=== PATIENT | male | born 1955 | race Caucasian/White ===

== ENCOUNTER 2016-09-19 01:08 | Emergency (ER) | payer OTHER ==
--- NOTE | 2016-09-19 02:38 | ED ORDER SUMMARY ---
..... Patient: HANNAH BOJORQUEZ OrderSheet [facility] VisitID: [id number] [place] [address] 60y, M Registration Date/Time: 09/19/2016 ORDER SHEET Weight: 90.7 kg (stated) Allergies: No Known Drug Allergy GENERAL ORDERS: UA-Culture if indicated Urgent (01:39 09/19/2016 Kameron ROBLES) (Ack 1:40 Annemarie) (1:44 Lauryn R.N.) CT Abd/Pel wo Cont Urgent (:40 09/19/2016 Kameron ROBLES) (Ack 1:42 Annemarie) (1:54 RFay) MEDICATION ORDERS: IV FLUIDS: Toradol IV 30 mg (NOW) (:40 09/19/2016 Kameron ROBLES) (1:56 Lauryn R.N.) IV NS : initial bolus 1000 mL (1000 mL/hr), then none - (NOW) (:40 09/19/2016 Kameron ROBLES) (1:56 Lauryn R.N.) Morphine IV 10 mg (HIGH ALERT MEDICATION, NOW) (02:03 09/19/2016 Kameron ROBLES) (3:04 Lauryn R.N.) Zofran IV 8 mg (NOW) (02:03 09/19/2016 Kameron ROBLES) (3:04 Lauryn R.N.) ORDER SHEET NOTES: [Electronically signed by Ryland Latham R.N. (03:18 09/19/2016)] [Electronically signed by Tosha Bonilla MD (21:32 09/22/2016)] [Electronically locked/signed by Ryland Latham R.N. (03:18 09/19/2016)]
--- NOTE | 2016-09-19 02:38 | ED NURSING NOTES ---
Clinical Report - Nurses [facility] [address] [place] [address] 09/19/2016 1:09 Patient: HANNAH BOJORQUEZ TRIAGE Triage time 0119. Acuity: LEVEL 3. Chief Complaint: TESTICULAR PAIN and (pt states," i have a kidney stone."). --01:25 Ryland Latham R.N. 01:19 09/19/16. BP: 160/102. HR: 63. RR: 18. O2 saturation: 100%. Temp: 98 F. Pain level now 05/24. --: Ryland Latham R.N. Weight: 90.7 kg stated. Height/Length: 71 inches Per Patient. BMI: 27.9. --: Ryland Latham R.N. Medications Unknown. --: Ryland Latham R.N. Allergies No Known Drug Allergy. --01:22 Ryland Latham R.N. History Arrived by private vehicle. Historian: spouse and patient. Onset was abrupt. (3 1/2 hours). ( c/o intermittent low back which progressed suddenly this evening to severe left flank pain.). He has had testicular pain. 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 SOCIAL HX: Light tobacco smoker (cigar)- less than 1/2 a pack per day. Alcohol use; consumes beer weekly and liquor weekly. FALL RISK ASSESSMENT: Fall risk assessment completed. No fall risk identified. NUTRITIONAL RISK ASSESSMENT: The nutritional risk assessment revealed no deficiencies. FUNCTIONAL ASSESSMENT: Functional assessment: no impairments noted. LEARNING NEEDS ASSESSMENT: The learning needs assessment revealed no barriers. SKIN INTEGRITY ASSESSMENT: Skin integrity risk assessment completed. No skin integrity risk identified. --01:25 Ryland Latham R.N. PROBLEMS: Renal Colic. Cervical Strain. Neck Pain. Immunizations. Head Injury. Sprain. Abrasion(s). Laceration. Tetanus Status. Headache. Nephrolithiasis. Hypertension. --01:23 [place], Ryland, R.N. ADDITIONAL SURGERIES: Amputation right pinky finger . Carpal Tunnel Surgery. Cervical laminectomy. Shoulder Surgery. --: Ryland Latham R.N. Interventions ID band on patient. --: Ryland Latham R.N. PHYSICAL ASSESSMENT GENERAL / NEURO / PSYCH: Alert. Oriented X 4. Appears in pain and in distress. HEENT: Mucous membranes are pink. RESPIRATORY: Respirations not labored. CVS: Normal heart rate and rhythm. Capillary refill less than 2 seconds. SKIN: Skin is warm and dry. --:25 Ryland Latham R.N. NURSING PROGRESS NOTES Patient gowned. Head of bed elevated. Reassurance given. Patient identifiers checked. Call light placed in reach. Bed placed in lowest position. Brakes of bed on. --01:26 Ryland Latham R.N. 01:44 09/19/2016 Site #1 started via IV in the right antecubital space with an 20g angiocath, with aseptic technique and good blood return; one attempt. Blood drawn: rainbow set. Labeled in the presence of the patient and sent to the lab. Saline lock flushed with saline. --01:44 Ryland Latham R.N. 01:56 09/19/2016 Toradol IVP 30 mg given. via site #1. Allergies verified and confirmed 5 rights. IV patency established. IV site checked: no pain, redness, or swelling. IV flushed thoroughly pre- and post-medication administration. IVP given by RN. --01:56 Ryland Latham R.N. 01:56 09/19/2016 Started bag #1 1000 mL IV Fluids IV NS (Saline); bolus of 1000 mL wide open via site #1. Allergies verified and confirmed 5 rights. IV patency established. IV site checked: no pain, redness, or swelling. IV flushed thoroughly pre- and post-medication administration. --01:56 Ryland Latham R.N. 02:39 09/19/2016 Zofran (Ondansetron HCl) IVP 8 mg given. via site #1. Allergies verified and confirmed 5 rights. IV patency established. IV site checked: no pain, redness, or swelling. IV flushed thoroughly pre- and post-medication administration. IVP given by RN. --03:04 Ryland Latham R.N. 02:39 09/19/2016 Morphine IVP 10 mg given. via site #1. Allergies verified, confirmed 5 rights and sedative warning given to the patient and patient's diversional therapist. IV patency established. IV site checked: no pain, redness, or swelling. IV flushed thoroughly pre- and post-medication administration. --03:04 Ryland Latham R.N. DISPOSITION / DISCHARGE Departure time: 314. Condition at departure: improved. No learning barriers present. Discharge instructions provided and reviewed with the patient and spouse. Reviewed warnings. Reviewed medication(s). Treatments reviewed. Reviewed referrals. Reviewed diet. Patient and spouse verbalized understanding. Written instructions provided in Ethiopian. The patient was discharged by the physician. He was discharged home and accompanied by spouse. He left the Emergency Department ambulatory and via private vehicle. Spouse driving. --03:17 Ryland Latham R.N. 03:17 09/19/16. BP: deferred. Additional comments: in hurry to leave, d/c'd iv and wanted to leave immediately. --03:17 Ryland Latham R.N. 03:18 09/19/2016 Site #1 removed upon discharge. Bandage applied. --03:18 Ryland Latham R.N. Locked/Released at 09/19/2016 3:18 by Ryland Latham R.N.
--- NOTE | 2016-09-19 02:38 | ED NURSING NOTES ---
Clinical Report - Nurses [facility] [address] [place] [address] 09/19/2016 1:09 Patient: HANNAH BOJORQUEZ TRIAGE Triage time 0119. Acuity: LEVEL 3. Chief Complaint: TESTICULAR PAIN and (pt states," i have a kidney stone."). --01:25 Ryland Latham R.N. 01:19 09/19/16. BP: 160/102. HR: 63. RR: 18. O2 saturation: 100%. Temp: 98 F. Pain level now 05/24. --: Ryland Latham R.N. Weight: 90.7 kg stated. Height/Length: 71 inches Per Patient. BMI: 27.9. --: Ryland Latham R.N. Medications Unknown. --: Ryland Latham R.N. Allergies No Known Drug Allergy. --01:22 Ryland Latham R.N. History Arrived by private vehicle. Historian: spouse and patient. Onset was abrupt. (3 1/2 hours). ( c/o intermittent low back which progressed suddenly this evening to severe left flank pain.). He has had testicular pain. 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 SOCIAL HX: Light tobacco smoker (cigar)- less than 1/2 a pack per day. Alcohol use; consumes beer weekly and liquor weekly. FALL RISK ASSESSMENT: Fall risk assessment completed. No fall risk identified. NUTRITIONAL RISK ASSESSMENT: The nutritional risk assessment revealed no deficiencies. FUNCTIONAL ASSESSMENT: Functional assessment: no impairments noted. LEARNING NEEDS ASSESSMENT: The learning needs assessment revealed no barriers. SKIN INTEGRITY ASSESSMENT: Skin integrity risk assessment completed. No skin integrity risk identified. --01:25 Ryland Latham R.N. PROBLEMS: Renal Colic. Cervical Strain. Neck Pain. Immunizations. Head Injury. Sprain. Abrasion(s). Laceration. Tetanus Status. Headache. Nephrolithiasis. Hypertension. --01:23 [place], Ryland, R.N. ADDITIONAL SURGERIES: Amputation right pinky finger . Carpal Tunnel Surgery. Cervical laminectomy. Shoulder Surgery. --: Ryland Latham R.N. Interventions ID band on patient. --: Ryland Lahtam R.N. PHYSICAL ASSESSMENT GENERAL / NEURO / PSYCH: Alert. Oriented X 4. Appears in pain and in distress. HEENT: Mucous membranes are pink. RESPIRATORY: Respirations not labored. CVS: Normal heart rate and rhythm. Capillary refill less than 2 seconds. SKIN: Skin is warm and dry. --:25 Ryland Latham R.N. NURSING PROGRESS NOTES Patient gowned. Head of bed elevated. Reassurance given. Patient identifiers checked. Call light placed in reach. Bed placed in lowest position. Brakes of bed on. --01:26 Ryland Latham R.N. 01:44 09/19/2016 Site #1 started via IV in the right antecubital space with an 20g angiocath, with aseptic technique and good blood return; one attempt. Blood drawn: rainbow set. Labeled in the presence of the patient and sent to the lab. Saline lock flushed with saline. --01:44 Ryland Latham R.N. 01:56 09/19/2016 Toradol IVP 30 mg given. via site #1. Allergies verified and confirmed 5 rights. IV patency established. IV site checked: no pain, redness, or swelling. IV flushed thoroughly pre- and post-medication administration. IVP given by RN. --01:56 Ryland Latham R.N. 01:56 09/19/2016 Started bag #1 1000 mL IV Fluids IV NS (Saline); bolus of 1000 mL wide open via site #1. Allergies verified and confirmed 5 rights. IV patency established. IV site checked: no pain, redness, or swelling. IV flushed thoroughly pre- and post-medication administration. --01:56 Ryland Latham R.N. 02:39 09/19/2016 Zofran (Ondansetron HCl) IVP 8 mg given. via site #1. Allergies verified and confirmed 5 rights. IV patency established. IV site checked: no pain, redness, or swelling. IV flushed thoroughly pre- and post-medication administration. IVP given by RN. --03:04 Ryland Latham R.N. 02:39 09/19/2016 Morphine IVP 10 mg given. via site #1. Allergies verified, confirmed 5 rights and sedative warning given to the patient and patient's cane flume watchman. IV patency established. IV site checked: no pain, redness, or swelling. IV flushed thoroughly pre- and post-medication administration. --03:04 Ryland Latham R.N. DISPOSITION / DISCHARGE Departure time: 314. Condition at departure: improved. No learning barriers present. Discharge instructions provided and reviewed with the patient and spouse. Reviewed warnings. Reviewed medication(s). Treatments reviewed. Reviewed referrals. Reviewed diet. Patient and spouse verbalized understanding. Written instructions provided in Palestinian. The patient was discharged by the physician. He was discharged home and accompanied by spouse. He left the Emergency Department ambulatory and via private vehicle. Spouse driving. --03:17 Ryland Latham R.N. 03:17 09/19/16. BP: deferred. Additional comments: in hurry to leave, d/c'd iv and wanted to leave immediately. --03:17 Ryland Latham R.N. 03:18 09/19/2016 Site #1 removed upon discharge. Bandage applied. --03:18 Ryland Latham R.N. Locked/Released at 09/19/2016 3:18 by Ryland Latham R.N.
--- NOTE | 2016-09-19 02:38 | ED ORDER SUMMARY ---
..... Patient: HANNAH BOJORQUEZ OrderSheet [facility] VisitID: [id number] [place] [address] 60y, M Registration Date/Time: 09/19/2016 ORDER SHEET Weight: 90.7 kg (stated) Allergies: No Known Drug Allergy GENERAL ORDERS: UA-Culture if indicated Urgent (01:39 09/19/2016 Kameron ROBLES) (Ack 1:40 Annemarie) (1:44 Lauryn R.N.) CT Abd/Pel wo Cont Urgent (:40 09/19/2016 Kameron ROBLES) (Ack 1:42 Annemarie) (1:54 RFay) MEDICATION ORDERS: IV FLUIDS: Toradol IV 30 mg (NOW) (:40 09/19/2016 Kameron ROBLES) (1:56 Lauryn R.N.) IV NS : initial bolus 1000 mL (1000 mL/hr), then none - (NOW) (:40 09/19/2016 Kameron ROBLES) (1:56 Lauryn R.N.) Morphine IV 10 mg (HIGH ALERT MEDICATION, NOW) (02:03 09/19/2016 Kameron ROBLES) (3:04 Lauryn R.N.) Zofran IV 8 mg (NOW) (02:03 09/19/2016 Kameron ROBLES) (3:04 Lauryn R.N.) ORDER SHEET NOTES: [Electronically signed by Ryland Latham R.N. (03:18 09/19/2016)] [Electronically signed by Tosha Bonilla MD (21:32 09/22/2016)] [Electronically locked/signed by Ryland Latham R.N. (03:18 09/19/2016)]
--- NOTE | 2016-09-19 02:38 | ED CLINICAL REPORT ---
Clinical Report - Physicians/Mid Levels [facility] [address] [place] [address] 09/19/2016 1:09 Patient: HANNAH BOJORQUEZ Time Seen: 01:39. Arrived- By private vehicle. Historian- patient. HISTORY OF PRESENT ILLNESS Chief Complaint: FLANK PAIN. At its maximum, severity described as severe. When seen in the E.D., severity described as moderate. Modifying factors. Not worsened by anything. Not relieved by anything. It is described as "pain" and sharp and it is described as located in the left lower quadrant and the left flank and radiating (L testicle). This started just prior to arrival and is still present. The patient has had nausea. No loss of appetite or diarrhea. Similar symptoms previously: ( Pt has a h/o kidney stones.). Recent medical care: Not recently seen/assessed. REVIEW OF SYSTEMS No constipation, black stools, hematemesis, difficulty with urination or pain with urination. No urinary frequency, bloody stools, fever, headache or sore throat. No blurred vision, chest pain, difficulty breathing, cough or joint pain. No skin rash, chills or back pain. All systems otherwise negative, except as recorded above. PAST HISTORY Problems: Renal Colic. Immunizations. Tetanus Status. Nephrolithiasis. Hypertension. Additional Surgeries: Amputation right pinky finger . Carpal Tunnel Surgery. Cervical laminectomy. Shoulder Surgery. Medications: Unknown. Allergies: No Known Drug Allergy. SOCIAL HISTORY Smoker- current status unknown. Alcohol use. No drug use. ADDITIONAL NOTES The nursing notes have been reviewed. PHYSICAL EXAM Vital Signs: 09/19/2016 01:19 BP: 160/102. HR: 63. RR: 18. O2 saturation: 100%. Temp: 98 F. Have been reviewed. Appearance: Alert. Oriented X3. Patient in mild distress. Distress appears due to pain. Eyes: Pupils equal, round and reactive to light. Eyes normal inspection. ENT: Nose normal. Neck: Normal inspection. Neck supple. CVS: Normal heart rate and rhythm. Heart sounds normal. Pulses normal. Respiratory: No respiratory distress. Breath sounds normal. Abdomen: Soft. Moderate tenderness (L flank). No guarding or rebound tenderness. Back: Normal inspection. No CVA tenderness. Skin: Skin warm and dry. Normal skin color. No rash. Normal skin turgor. Extremities: Extremities exhibit normal ROM. No lower extremity edema. Neuro: Oriented X 3. No motor deficit. No sensory deficit. LABS, X-RAYS, AND EKG Abdominal CT: Normal aorta. Normal liver, spleen, pancreas, gallbladder and adrenals. Multiple urinary calculi are present in the left kidney and left distal ureter (4 mm). There is mild obstruction. Bladder normal. Appendix normal. No mass. No free fluid. No bony lesion. No diverticulitis. Study type: renal stone evaluation; abdomen and pelvis. Abdominal CT performed without contrast. The study was independently viewed by me, interpreted by the radiologist and contemporaneously by me and discussed with the radiologist. Prior studies were not available for comparison. Laboratory Tests: UA-Culture if indicated: (TIA: 09/19/2016 01:40) ( [id number] 09/19/2016 01:54) Final results Test Result Flag Units (Reference) URINE COLOR YELLOW URINE APPEARANCE CLEAR URINE GLUCOSE NEGATIVE (NEGATIVE) URINE BILIRUBIN NEGATIVE (NEGATIVE) URINE KETONE NEGATIVE (NEGATIVE) URINE SPECIFIC GRAVITY >= 1.030 (1.010-1.030) URINE PH 5.5 (5.0-8.0) URINE PROTEIN NEGATIVE (NEGATIVE) URINE UROBILINOGEN 0.2 EU/dL (0.2-1.0) URINE NITRITE NEGATIVE (NEGATIVE) URINE BLOOD 2+ (NEGATIVE) URINE LEUK ESTERASE NEGATIVE (NEGATIVE) URINE RBC 3-5 rbc/hpf (0-1) URINE WBC 0-1 wbc/hpf (0-1) URINE EPITHELIAL CELLS 0-1 EPI/hpf (0-5) URINE BACTERIA TRACE (<1+) (NONE SEEN) URINE COMMENT CULT NOT INDICATED URINE CULTURES ARE SET-UP BASED ON THE FOLLOWING CRITERIA:POSITIVE NITRITEPOSITIVE LEUKOCYTE ESTERASEGREATER THAN 10 WHITE BLOOD CELLSMODERATE (2+) OR GREATER BACTERIA . Pulse Oximetry: 09/19/2016 01:19 O2 saturation: 100%. (FIO2 - room air). Interpretation: normal. PROGRESS AND PROCEDURES Course of Care: Pt was treated symptomatically with IV fluids, Toradol, Zofran, and morphine, with improvement in sx. He was worked up with a UA and CT, and as suspected, was found to be passing a kidney stone. Patient and spouse counseled in person regarding the patient's stable condition, test results, diagnosis and need for follow-up. Concerns were addressed. Old medical records reviewed. Disposition: Discharged. Condition: stable and improved. CLINICAL IMPRESSION Ureterolithiasis (single stone) in the left ureter with renal colic, hydronephrosis and hematuria. No acute pyelonephritis or urinary tract infection. INSTRUCTIONS Drink plenty of fluids. (Your CT scan shows a 4 mm stone about to pop into the bladder from the left ureter. This should pass easily on its own. Your urine shows no sign of infection.). Warnings: SEDATIVE MEDICATION: You were given sedative medication during your visit. Do not drive or operate dangerous machinery for 8 hours. GENERAL WARNINGS: Return or contact your physician immediately if your condition worsens or changes unexpectedly, if not improving as expected, or if other problems arise. Prescription Medications: Hydrocodone/APAP 5mg / 325mg: take 1-2 orally every 6 hours as needed for pain. Dispense fifteen (15). No refill. Zofran (orally disintegrating tablets) 4 mg: take 1-2 orally every 6 hours as needed for nausea. Dispense fifteen (15). No refill. Substitution is permissible. Follow-up: Follow up with your doctor in two days if not better. Understanding of the discharge instructions verbalized by patient. (Electronically signed by Tosha Bonilla MD 09/22/2016 21:32)
--- NOTE | 2016-09-19 06:31 | DIAGNOSTIC IMAGING REPORT ---
PROCEDURE: CT ABDOMEN/PELVIS W/O CONTRAST INDICATION: Left flank pain. TECHNIQUE: Noncontrast axial images with sagittal and coronal reformations. Preliminary report provided by Elana Valdez MD ([facility]). COMPARISON: Compared to CT abdomen and pelvis on 07/09/2014. FINDINGS: ABDOMEN: Mild to moderate left hydronephrosis and hydroureter secondary to a 4 mm distal ureteral calculus (protrudes into the urinary bladder). In addition, there is a 6 mm nonobstructing calculus in the lower pole left kidney. Right kidney and ureter are normal. Mild calcified atheromatous changes and fusion of the abdominal aorta. Gallbladder, liver, spleen, and pancreas are normal. Bowel pattern is normal, including appendix. Mild degenerative changes of the lower lumbar spine. PELVIS: Mild to moderate enlargement prostate (4.5 cm) with central dystrophic calcifications). Mild sigmoid diverticulosis. The rest of the pelvic structures are normal. IMPRESSION: 1. Mild to moderate left hydronephrosis and hydroureter secondary to a 4 mm distal ureteral calculus with protrudes into the bladder. 2. There is a 6 mm nonobstructing calculus in the lower pole left kidney. 3. Mild to moderate enlargement prostate (4.5 cm). 4. Mild sigmoid diverticulosis. 5. Preliminary report provided to Dr. Bonilla. All CT scans at this facility use dose modulation, iterative reconstruction, and/or weight-based dosing when appropriate to reduce radiation dose to as low as reasonably achievable.
--- NOTE | 2016-09-22 21:32 | ED MAR SUMMARY ---
..... Medication Administration Record [facility] [address] [place] [address] Patient: HANNAH BOJORQUEZ Visit ID: [id number] 60y, M Weight: 90.7 kg Height/Length: 71 in BMI: 27.9 ALLERGIES: No Known Drug Allergy Given 01:56 09/19/2016 Ryland Latham R.N. Medication Administered: TORADOL [IVP], Dose: 30 mg IVP, Site: #1 right AC. Medication Ordered: Toradol IV 30 mg (NOW). Start 01:56 09/19/2016 Ryland Latham R.N. Medication Administered: IV NS (SALINE), Dose: IV Fluids, Bolus: 1000 mL wide open, Dispensed: 1000 mL bag, Site: #1 right AC. Medication Ordered: IV NS : initial bolus 1000 mL (1000 mL/hr), then none - (NOW). Given 02:39 09/19/2016 Ryland Latham R.N. Medication Administered: MORPHINE [IVP], Dose: 10 mg IVP, Site: #1 right AC. Medication Ordered: Morphine IV 10 mg (HIGH ALERT MEDICATION, NOW). Given 02:39 09/19/2016 Ryland Latham R.N. Medication Administered: ZOFRAN [IVP] (ONDANSETRON HCL), Dose: 8 mg IVP, Site: #1 right AC. Medication Ordered: Zofran IV 8 mg (NOW).
--- NOTE | 2016-09-22 21:32 | ED MED RECONCILIATION SUMMARY ---
Patient: HANNAH BOJORQUEZ Medication Reconciliation Report [facility] VisitID: [id number] [place] [address] 60y, M Registration Date/Time: 09/19/2016 Weight: 90.7 kg Height/Length: 71 in. BMI: 27.9 ALLERGIES: No Known Drug Allergy The patient's Home Medications are listed below: Unknown. The source(s) of the original Home Medication information: Not obtained. The following Medications were given to the patient in the Emergency Department: Toradol [IVP] IVP 30 mg, administered: 09/19/2016 1:56:00 AM IV NS IV Fluids bolus 1000 mL wide open, administered: 09/19/2016 1:56:00 AM Zofran [IVP] IVP 8 mg, administered: 09/19/2016 2:39:00 AM Morphine [IVP] IVP 10 mg, administered: 09/19/2016 2:39:00 AM The following Medications were prescribed to the patient: Hydrocodone/APAP 5mg / 325mg: take 1-2 orally every 6 hours as needed for pain. Dispense fifteen (15). No refill. -- Tosha Bonilla MD Zofran (orally disintegrating tablets) 4 mg: take 1-2 orally every 6 hours as needed for nausea. Dispense fifteen (15). No refill. Substitution is permissible. -- Tosha Bonilla MD
--- NOTE | 2016-09-22 21:32 | ED MAR SUMMARY ---
..... Medication Administration Record [facility] [address] [place] [address] Patient: HANNAH BOJORQUEZ Visit ID: [id number] 60y, M Weight: 90.7 kg Height/Length: 71 in BMI: 27.9 ALLERGIES: No Known Drug Allergy Given 01:56 09/19/2016 Ryland Latham R.N. Medication Administered: TORADOL [IVP], Dose: 30 mg IVP, Site: #1 right AC. Medication Ordered: Toradol IV 30 mg (NOW). Start 01:56 09/19/2016 Ryland Latham R.N. Medication Administered: IV NS (SALINE), Dose: IV Fluids, Bolus: 1000 mL wide open, Dispensed: 1000 mL bag, Site: #1 right AC. Medication Ordered: IV NS : initial bolus 1000 mL (1000 mL/hr), then none - (NOW). Given 02:39 09/19/2016 Ryland Latham R.N. Medication Administered: MORPHINE [IVP], Dose: 10 mg IVP, Site: #1 right AC. Medication Ordered: Morphine IV 10 mg (HIGH ALERT MEDICATION, NOW). Given 02:39 09/19/2016 Ryland Latham R.N. Medication Administered: ZOFRAN [IVP] (ONDANSETRON HCL), Dose: 8 mg IVP, Site: #1 right AC. Medication Ordered: Zofran IV 8 mg (NOW).
--- NOTE | 2016-09-22 21:32 | ED DISCHARGE INSTRUCTIONS ---
Patient: HANNAH BOJORQUEZ General Instructions [facility] VisitID: [id number] [place] [address] 60y, M Registration Date/Time: 09/19/2016 Ureterolithiasis (single stone) in the left ureter with renal colic, hydronephrosis and hematuria. No acute pyelonephritis or urinary tract infection. INSTRUCTIONS Drink plenty of fluids. (Your CT scan shows a 4 mm stone about to pop into the bladder from the left ureter. This should pass easily on its own. Your urine shows no sign of infection.). Warnings: SEDATIVE MEDICATION: You were given sedative medication during your visit. Do not drive or operate dangerous machinery for 8 hours. GENERAL WARNINGS: Return or contact your physician immediately if your condition worsens or changes unexpectedly, if not improving as expected, or if other problems arise. Prescription Medications: Hydrocodone/APAP 5mg / 325mg: take 1-2 orally every 6 hours as needed for pain. Dispense fifteen (15). No refill. Zofran (orally disintegrating tablets) 4 mg: take 1-2 orally every 6 hours as needed for nausea. Dispense fifteen (15). No refill. Substitution is permissible. Follow-up: Follow up with your doctor in two days if not better. Understanding of the discharge instructions verbalized by patient. ADDITIONAL INFORMATION Kidney Stone (W/ Colic) The sharp cramping pain and nausea/vomiting that you have is due to a small stone which has formed in the kidney and is now passing down a narrow tube (ureter) on its way to your bladder. Once it reaches your bladder, the pain will stop. The stone may pass in your urine stream in one piece. [The size may be 1/16" to 1/4" (1-6mm)]. Or, the stone may also break up into keshav fragments which you may not even notice. Once you have had a kidney stone, you are at risk for developing another one in the future. Home Care: Drink plenty of fluids (at least 8 to 10 glasses of water a day). Most stones will pass on their own, but may take from a few hours to a few days. Sometimes the stone is too large to pass by itself and special methods will have to be used to remove the stone. Each time you urinate, do so in a jar. Pour the urine from the jar through the strainer and into the toilet. Continue doing this until 24 hours after your pain stops. By then, if there was a kidney stone, it should pass from your bladder. Some stones dissolve into sand-like particles and pass right through the strainer. In that case, you wont ever see a stone. Save any stone that you find in the strainer and bring it to your doctor for analysis. It may be possible to prevent certain types of stones from forming. Therefore, it is important to know what kind of stone you have. Try to stay as active as possible since this will help the stone pass. Do not stay in bed unless your pain prevents you from getting up. You may notice a red, pink or brown color to your urine. This is normal while passing a kidney stone. Follow Up with your doctor or return to this facility if the pain lasts more than 48 hours. Get Prompt Medical Attention if any of the following occur: Pain that is not controlled by the medicine given Repeated vomiting or unable to keep down fluids Weakness, dizziness or fainting Fever of 100.4F (38C) or higher, or as directed by your healthcare provider Passage of solid red or brown urine (can't see through it) or urine with lots of blood clots Unable to pass urine for 8 hours and increasing bladder pressure You have been given the following additional information: Kidney Stone W/ Colic (Electronically signed by Tosha Bonilla MD 09/22/2016 21:32)
--- NOTE | 2016-09-22 21:32 | ED MED RECONCILIATION SUMMARY ---
Patient: HANNAH BOJORQUEZ Medication Reconciliation Report [facility] VisitID: [id number] [place] [address] 60y, M Registration Date/Time: 09/19/2016 Weight: 90.7 kg Height/Length: 71 in. BMI: 27.9 ALLERGIES: No Known Drug Allergy The patient's Home Medications are listed below: Unknown. The source(s) of the original Home Medication information: Not obtained. The following Medications were given to the patient in the Emergency Department: Toradol [IVP] IVP 30 mg, administered: 09/19/2016 1:56:00 AM IV NS IV Fluids bolus 1000 mL wide open, administered: 09/19/2016 1:56:00 AM Zofran [IVP] IVP 8 mg, administered: 09/19/2016 2:39:00 AM Morphine [IVP] IVP 10 mg, administered: 09/19/2016 2:39:00 AM The following Medications were prescribed to the patient: Hydrocodone/APAP 5mg / 325mg: take 1-2 orally every 6 hours as needed for pain. Dispense fifteen (15). No refill. -- Tosha Bonilla MD Zofran (orally disintegrating tablets) 4 mg: take 1-2 orally every 6 hours as needed for nausea. Dispense fifteen (15). No refill. Substitution is permissible. -- Tosha Bonilla MD
== END 2016-09-19 03:15 | disposition home or self-care (01) ==
LOC: ED SRH 01:08
DX: N13.2 Hydronephrosis with renal and ureteral calculous obstruction (principal); I10 Essential (primary) hypertension; F17.210 Nicotine dependence, cigarettes, uncomplicated
CPT/HCPCS: 90004